=== PATIENT | female | born 1940 | race Caucasian/White ===

== ENCOUNTER → 2017-10-13 | Outpatient (CLI) | payer MEDICARE, OTHER ==
[~2017-10-13] MED LIST: ALEN70TA43 PO; B CO PO; CALC-965 PO; CALC1TAB32 PO; CHL10 PO; DOCU-416 PO; FLU180SY9 IM; HYDR-385 PO; IBUP-1687 PO; LEVO75TA73 PO; MIRT-22 PO; MULT1TAB64 PO; VITA-131 PO
[2017-10-13 15:00] LABS: PLATELET COUNT, AUTOMATED 210 K/uL (150-450)
== END ==
LOC: LAB 14:21
PROVIDERS: ATTEND Family Medicine
DX: I10 Essential (primary) hypertension (principal); E03.9 Hypothyroidism, unspecified; E55.9 Vitamin D deficiency, unspecified
CPT/HCPCS: 36415; 82306; 82310; 82374; 82435; 82565; 82947; 84132; 84295; 84443; 84520; 85025

== ENCOUNTER → 2017-10-23 | Outpatient (CLI) | payer MEDICARE, OTHER ==
--- NOTE | 2017-10-23 14:46 | RADIOLOGY IMAGING REPORT ---
FACILITY: [facility] [place] PATIENT NAME: Otilia Spence : 1940 MR: [id number] V: [id number] EXAM DATE: ORDERING PHYSICIAN: THANIA BARKER TECHNOLOGIST: Location: Patient: Otilia Spence : 1940 Visit/Account:[id number] Date of Sevice: 10/23/2017 ADDENDUM #1 Impression one should state lumbar spine: Osteopenia. Report Dictated By: Debra Swenson MD at 10/25/2017 3:13 PM Report E-Signed By: Debra Swenson MD at 10/25/2017 3:13 PM ORIGINAL REPORT DEXA Scan Clinical history: Osteoporosis. Comparison: DEXA scan from to 714. LUMBAR SPINE: The bone mineral density (BMD) measured from L1-L4 correlates with a Z-score of 0.8 and a T-score of -1.4 which is osteopenia as defined by the World Health Organization. The corresponding risk of frac ture in the lumbar spine is 2-3 times increased compared with a young adult reference population. Th is value has decrease by 2.1 % since the prior study. More than 5% change is considered significant. HIP: Bone mineral density (BMD) measured in the LEFT total hip region correlates with a Z-score 0.7 and a T-score of -1.4 which is osteopenia as defined by the World Health Organization. The corresponding r isk of fracture in the hip is 2-3 times increased compared to a young adult reference population. Thi s value has decrease by -0.7 % since the prior study. More than 5% change is considered significant. T score left femoral neck -1.8 Bone mineral density (BMD) measured in the Femoral Neck region measures 0.787 g/cm?. IMPRESSION: 1. Lumbar spine: Stepanian. There has been 2.1% decrease in the bone mineral density since the prev ious exam. 2. Left Total Hip: Osteopenia. There has been 0.7% decrease in the bone mineral density since the p revious exam. 3. Femoral Neck: Bone Mineral Density is 0.787 g/cm? The next DEXA scan of this patient should include the following sites: L1-L4 and the left hip. FRAX? WHO Fracture Risk Assessment Tool link: <http://www.shef.ac.uk/FRAX/tool.jsp?locationValue=9> PLEASE NOTE: 1) The World Health Organization defines low BMD as follows: T-score Normal > -1 Osteopenia < -1 and > -2.5 Osteoporosis < -2.5 without fractures Established osteoporosis < -2.5 with fractures 2) In general, you may wish to consider: Diagnosis Treatment Follow-up DEXA Normal BMD Prevention 2-3 years Osteopenia Prevention/therapy 1-2 years Osteoporosis Therapy Yearly 3) Fracture risk estimated from the T-score is more accurate for vertebral fractures (often spontane ous) than for hip fractures. Report Dictated By: Debra Swenson MD at 10/23/2017 2:39 PM Report E-Signed By: Debra Swenson MD at 10/23/2017 2:40 PM SHERYLN:LOREE
== END ==
LOC: RAD 13:13
PROVIDERS: ATTEND Family Medicine
DX: M85.88 Other specified disorders of bone density and structure, other site (principal)
CPT/HCPCS: 77080